=== PATIENT | female | born 1995 | race Caucasian/White ===

== ENCOUNTER 2016-12-09 22:38 | Emergency (ER) | payer MEDICAID ==
[2016-12-10 00:51] VITALS: BP 115/64
== END 2016-12-10 00:51 | disposition home or self-care (01) ==
LOC: ED 22:38
DX: T78.40XA Allergy, unspecified, initial encounter (principal); R21 Rash and other nonspecific skin eruption; R22.30 Localized swelling, mass and lump, unspecified upper limb; Z79.899 Other long term (current) drug therapy; X58.XXXA Exposure to other specified factors, initial encounter
CPT/HCPCS: J0171; J7512; Q0163

== ENCOUNTER 2016-12-11 22:00 | Emergency (ER) | payer MEDICAID ==
[2016-12-11 23:55] VITALS: BP 122/74
== END 2016-12-11 23:55 | disposition home or self-care (01) ==
LOC: ED 22:00
DX: L50.9 Urticaria, unspecified (principal)
CPT/HCPCS: J7512; Q0163